=== PATIENT | male | born 1960 | race Hispanic/Latino ===

== ENCOUNTER 2018-06-15 16:53 | Emergency (ER) | payer BC ==
[~2018-06-15] VITALS: Ht 175.3 cm; Wt 106.6 kg
[2018-06-15 17:31] LABS: PLATELET COUNT 249 K/uL (142-355)
[2018-06-15 17:49] LABS: SODIUM 140 mmol/L (136-145)
[2018-06-15 19:05] VITALS: BP 157/91; TEMP 98.6
== END 2018-06-15 19:05 | disposition home or self-care (01) ==
LOC: ED 16:53
PROVIDERS: Emergency Medicine
DX: M79.1 Myalgia (principal); R07.89 Other chest pain
CPT/HCPCS: 36415; 80053; 82550; 83880; 84484; 85027; 93005; 99284

== ENCOUNTER 2021-06-09 09:25 | Outpatient (CLI) | payer BC | END 2021-06-09 21:41 | disposition home or self-care (01) | LOC: RAD 09:25 | PROVIDERS: ATTEND Internal Medicine | DX: M79.671 Pain in right foot (principal) ==

== ENCOUNTER 2021-10-17 10:52 | Outpatient (CLI) | payer BC, OTHER | END 2021-10-17 19:29 | disposition home or self-care (01) | LOC: RAD 10:52 | PROVIDERS: ATTEND Internal Medicine | DX: R05.9 Cough, unspecified (principal); U07.1 COVID-19 ==